=== PATIENT | male | born 1960 | race Caucasian/White ===

== ENCOUNTER → 2017-02-12 | Outpatient (CLI) | payer OTHER | LOC: SL 20:30 | PROVIDERS: ATTEND General Practice | DX: G47.30 Sleep apnea, unspecified (principal); G47.10 Hypersomnia, unspecified ==

== ENCOUNTER → 2017-08-13 | Outpatient (CLI) | payer OTHER ==
--- NOTE | 2017-08-13 15:55 | CT ---
EXAM DESCRIPTION: CTA Chest: Computed Tomography. CLINICAL HISTORY: ABN D DIMER COMPARISON: None. TECHNIQUE: Spiral-axial scans at 2.5 mm intervals through the pulmonary arteries and chest after bolus infusion of IV contrast. Lung algorithm 1.25-mm axial reconstructions. Coronal and sagittal 2.0 Mm reconstructions. 2.5 mm PE oblique 3-D reformatted images, generated on the radiologist workstation. No adverse reactions. Total Exam DLP: 662.93 mGy-cm. This exam was performed according to our departmental CT dose-optimization program which includes automated exposure control, adjustment of the mA and/or kV according to patient size and/or use of iterative reconstruction technique; to reduce radiation dose to as low as reasonably achievable (ALARA). FINDINGS: Pulmonary arterial system is well demonstrated with IV contrast from the main pulmonary artery to the bilateral proximal subsegmental pulmonary arterial branches. No filling defects are noted. These bilateral peripheral branches appear symmetric. Small inhomogeneous thyroid gland with minimal enhancement. Atherosclerotic calcifications in the aorta and proximal brachiocephalic vessels. Coronary artery calcifications. No enlarged lymph nodes or soft tissue masses in the axilla, mediastinum, or bilateral hilar areas. 10 mm short axis lymph node in the right hilum. Minimal prominence of interstitial markings in the included lungs with scattered parenchymal blebs more prevalent in the upper lung concepcion and mostly centralized. Included subdiaphragmatic peritoneal cavity is unremarkable. Included adrenal glands are negative. Gallbladder is partially visualized. Minimal disc space narrowing at some levels of the thoracic spine with endplate ridging. IMPRESSION: 1. No CTA evidence of acute pulmonary embolus. 2. Centrilobular mild emphysematous pattern in the lungs. 3. Atherosclerotic calcification in the brachiocephalic vessels, and thoracic aorta. Also in the coronary arteries. Electronically signed by: Yovanny Padilla MD 08/13/2017 3:53 PM CDT
== END ==
LOC: CT 08:09
PROVIDERS: ATTEND General Practice
DX: R06.00 Dyspnea, unspecified (principal); R07.9 Chest pain, unspecified; R79.1 Abnormal coagulation profile; I70.0 Atherosclerosis of aorta

== ENCOUNTER → 2018-10-19 | Outpatient (CLI) | payer OTHER ==
--- NOTE | 2018-10-19 13:43 | CT ---
TECHNIQUE: Contrast enhanced axial spiral CT images were obtained with multiple reconstructions performed. 3D MIP reformats provided. This exam was performed according to our departmental dose-optimization program, which includes automated exposure control, adjustment of the mA and/or kV according to patient size and/or use of iterative reconstruction technique. CLINICAL HISTORY PROVIDED: HEADACHE COMPARISON: None available. FINDINGS: The ventricles and sulci are normal, without hydrocephalus or significant atrophy. Right frontal high attenuation collection measuring 3 mm in thickness, subjacent the craniotomy. No mass effect or midline shift. Postcontrast: Right Vertebral: Unremarkable. Left Vertebral: Unremarkable. Basilar: Unremarkable. Right Posterior Cerebral: Unremarkable. Left Posterior Cerebral: Unremarkable. Right Internal Carotid: Unremarkable. Right Anterior Cerebral: Unremarkable. Right Middle Cerebral: Right middle cranial fossa aneurysm clip. [place] artifact limits evaluation of the MCA. Left Internal Carotid: Unremarkable. Left Anterior Cerebral: Unremarkable. Left Middle Cerebral: Unremarkable. Anterior Communicating Artery: Unremarkable. Right Posterior Communicating Artery: Unremarkable. Left Posterior Communicating Artery: Not identified. Other Incidental Findings: None of significance. IMPRESSION: 1. No hemodynamically significant stenosis. 2. 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 3. Right frontal high attenuation collection subjacent the craniotomy flap measuring 3 mm in thickness. No midline shift. This finding may reflect a small subdural hematoma or chronic dural thickening. Findings discussed with Dr. Colindres at 1:40 PM 10/19/2018 Electronically signed by: Oz Hancock MD 10/19/2018 1:42 PM CDT
== END ==
LOC: CT 12:33
PROVIDERS: ATTEND General Practice
DX: I67.1 Cerebral aneurysm, nonruptured (principal); R51 Headache